=== PATIENT | male | born 1990 | race American Indian/Alaskan Native ===

== ENCOUNTER 2018-06-19 07:19 | Emergency (ER) | payer SELFPAY ==
[2018-06-19] MEDS ORDERED: TYLENOL PO ONE (07:33)
--- NOTE | 2018-06-19 08:17 | XRay Report ---
ROUTINE CHEST, TWO VIEWS: HISTORY: Chest pain, cough, fever. The trachea, heart, mediastinal contour, lung nicholas and bony thorax are unremarkable. IMPRESSION: Normal chest x-ray.
--- NOTE | 2018-06-19 10:04 | Emergency Department Report ---
ED Chest Pain HPI - General Chief Complaint: Chest Pain Stated Complaint: TROUBLE BREATHING, CHEST TIGHTNESS Time Seen by Provider: 06/19/18 09:38 Source: patient, family Mode of arrival: Ambulatory Limitations: No Limitations - History of Present Illness MD Complaint: chest pain -: Sudden Onset: during rest Pain Location: substernal Pain Radiation: none Severity: moderate Severity scale (0 -10): 3 Quality: heaviness, sharp Consistency: intermittent Improves With: rest Worsens With: inspiration Context: recent travel re: denies: nausea, vomting Other Symptoms: fever. denies: cough Treatments Prior to Arrival: none Aspirin use within the Past 7 Days: (0) No - Related Data On Oral Contraceptives: No Home Medications Medication Instructions Recorded Confirmed Last Taken No Known Home Medications [No 06/19/18 06/19/18 Unknown Reported Home Medications] Allergies Allergy/AdvReac Type Severity Reaction Status Date / Time hydrocodone AdvReac Vomiting Verified 06/19/18 13:38 morphine AdvReac Vomiting Verified 06/19/18 13:38 oxycodone AdvReac Vomiting Verified 06/19/18 13:38 Heart Score - HEART Score History: Slightly suspicious EKG: Non-specific Age: < 45 Risk factors: No known risk factors Troponin: < normal limit HEART Score: 1 - Critical Actions Critical Actions: 0-3 pts:0.9-1.7%risk of adverse cardiac event.Candidate for discharge ED Review of Systems ROS: Stated complaint: TROUBLE BREATHING, CHEST TIGHTNESS Other details as noted in HPI Comment: All other systems reviewed and negative Constitutional: fever. denies: chills Eyes: denies: eye pain, eye discharge ENT: denies: ear pain Respiratory: shortness of breath Cardiovascular: chest pain. denies: palpitations Endocrine: no symptoms reported Gastrointestinal: denies: abdominal pain, nausea, vomiting, diarrhea Genitourinary: denies: urgency, dysuria, frequency Musculoskeletal: denies: back pain, joint swelling Skin: denies: rash, lesions Neurological: denies: headache, weakness, numbness Psychiatric: denies: anxiety, depression Hematological/Lymphatic: denies: easy bleeding, easy bruising ED Past Medical Hx - Past Medical History Previous Medical History?: No - Surgical History Past Surgical History?: No - Social History Smoking Status: Never Smoker Substance Use Type: Alcohol - Medications Home Medications: Home Medications Medication Instructions Recorded Confirmed Last Taken Type No Known Home Medications [No 06/19/18 06/19/18 Unknown History Reported Home Medications] ED Physical Exam - General Limitations: No Limitations General appearance: alert, in no apparent distress - Head Head exam: Present: atraumatic, normocephalic, normal inspection - Eye Eye exam: Present: normal appearance, PERRL, EOMI Pupils: Present: normal accommodation - ENT ENT exam: Present: normal exam, normal orophraynx, mucous membranes moist - Neck Neck exam: Present: normal inspection, full ROM. Absent: tenderness - Respiratory Respiratory exam: Present: normal lung sounds bilaterally. Absent: respiratory distress, wheezes, rales, rhonchi, stridor - Cardiovascular Cardiovascular Exam: Present: regular rate, normal rhythm, normal heart sounds - GI/Abdominal GI/Abdominal exam: Present: soft, normal bowel sounds. Absent: distended, tenderness, guarding, rebound, rigid - Extremities Exam Extremities exam: Present: normal inspection, full ROM, normal capillary refill. Absent: tenderness - Back Exam Back exam: Present: normal inspection, full ROM. Absent: tenderness - Neurological Exam Neurological exam: Present: alert, oriented X3, CN II-XII intact - Psychiatric Psychiatric exam: Present: normal affect, normal mood - Skin Skin exam: Present: warm, dry, intact, normal color. Absent: rash ED Course Vital Signs 06/19/18 06/19/18 06/19/18 07:30 09:08 09:16 Temperature 100 F H 98.8 F Pulse Rate 100 H 83 Respiratory 18 10 L 18 Rate Blood Pressure 148/88 O2 Sat by Pulse 100 97 100 Oximetry 06/19/18 06/19/18 06/19/18 10:00 11:00 11:04 Temperature 98.2 F Pulse Rate 76 Respiratory 20 Rate Blood Pressure 116/74 116/74 O2 Sat by Pulse 96 97 Oximetry 06/19/18 06/19/18 06/19/18 12:00 13:00 13:14 Temperature 98.8 F Pulse Rate 89 Respiratory 14 Rate Blood Pressure 119/76 120/79 O2 Sat by Pulse 98 97 Oximetry 06/19/18 14:00 Temperature Pulse Rate Respiratory Rate Blood Pressure 112/70 O2 Sat by Pulse 96 Oximetry AMANDO score - Amando Score Age > 65: (0) No Aspirin use within the Past 7 Days: (0) No 3 or more CAD Risk Factors: (0) No 2 or more Angina events in past 24 hrs: (0) No Known CAD with more than 50% Stenosis: (0) No Elevated Cardiac Markers: (0) No ST Deviation Greater than 0.5mm: (0) No AMANDO Score: 0 ED Medical Decision Making - Lab Data Result diagrams: 06/19/18 07:48 06/19/18 07:48 - EKG Data -: EKG Interpreted by Me EKG shows normal: sinus rhythm Rate: normal (98) - EKG Data When compared to previous EKG there are: previous EKG unavailable Interpretation: nonspecific ST-T wave zachary, other (No STEMI.) - Radiology Data Radiology results: report reviewed, image reviewed - Medical Decision Making Chest Pain. Critical care attestation.: If time is entered above; I have spent that time in minutes in the direct care of this critically ill patient, excluding procedure time. ED Disposition Clinical Impression: Transaminitis Chest pain Qualifiers: Chest pain type: unspecified Qualified Code(s): R07.9 - Chest pain, unspecified Disposition: DC-01 TO HOME OR SELFCARE Is pt being admited?: No Does the pt Need Aspirin: Yes Condition: Stable Instructions: Chest Pain (ED) Additional Instructions: Please follow up the [facility] Dr Parrish in his out patient clinic. Return to the ED if your condition worsens. Referrals: PRIMARY MD LUIS [Primary Care Provider] - 3-5 Days STELLA PARRISH MD [Staff Physician] - 3-5 Days Forms: Work/School Release Form(ED) Time of Disposition: 16:57
[2018-06-19 10:12] LABS: Basophils # (Auto) 0.1 K/mm3 (0.0-0.1); Basophils % (Auto) 0.9 % (0.0-1.8); Eosinophils # (Auto) 0.1 K/mm3 (0.0-0.4); Eosinophils % (Auto) 1.1 % (0.0-4.3); Hematocrit 38.1 % (35.5-45.6); Hemoglobin 13.5 gm/dl (11.8-15.2); Lymphocytes # (Auto) 3.2 K/mm3 (1.2-5.4); Mean Corpuscular HGB Conc 35 % (32-34); Mean Corpuscular Hemoglobin 33 pg (28-32); Mean Corpuscular Volume 93 fl (84-94); Monocytes # (Auto) 0.7 K/mm3 (0.0-0.8); Monocytes % (Auto) 9.5 % (0.0-7.3); Platelet Count 190 K/mm3 (140-440); Red Blood Count 4.11 M/mm3 (3.65-5.03); Red Cell Distribution Width 13.2 % (13.2-15.2)
[2018-06-19 10:30] LABS: BUN/Creatinine Ratio 13; Blood Urea Nitrogen 12 mg/dL (9-20); Calcium 9.2 mg/dL (8.4-10.2); Hemolysis Index 13
[2018-06-19 10:44] LABS: INR 0.93 (0.87-1.13)
[2018-06-19 10:45] LABS: Partial Thromboplastin Time 24.8 Sec. (24.2-36.6)
[2018-06-19 11:00] LABS: Albumin 4.3 g/dL (3.9-5); Bilirubin,Direct 0.2 mg/dL (0-0.2)
[2018-06-19 11:31] LABS: Bilirubin,Urine NEG (Negative); Blood,Urine NEG (Negative); Color,Urine Yellow (Yellow); Protein,Urine <15 mg/dL mg/dL (Negative); Urobilinogen,Urine < 2.0 mg/dL (<2.0)
--- NOTE | 2018-06-19 12:44 | Cat Scan Report ---
CTA CHEST: HISTORY: chest pain. COMPARISON: none. TECHNIQUE: Helical CT in 1.25mm intervals following IV contrast. Pulmonary embolus protocol. Sagittal and coronal reformatted images. Rotational MIP images. FINDINGS: Contrast bolus is satisfactory. No pulmonary embolus is identified. Thyroid gland: Normal. Tracheobronchial tree: Normal. Esophagus: Normal. Heart: Normal. Pericardium: Normal. Mediastinum: Normal. Lung Morris: normal. Pleural Spaces: Normal. Musculoskeletal: Normal. IMPRESSION: No evidence for pulmonary embolus. Unremarkable CT chest with contrast.
[2018-06-19 14:55] VITALS: BP 112/70
--- NOTE | 2018-06-19 16:12 | Ultrasound Report ---
FINAL REPORT EXAM: US ABDOMEN LIMITED HISTORY: Elevated liver enzymes. TECHNIQUE: Directed sonography of the upper abdomen. PRIORS: None. FINDINGS: Gallbladder demonstrates some internal echogenic, but not definitely shadowing foci. Wall thickness within normal limits. Intra-and extrahepatic bile ducts are of normal caliber. The liver has mildly heterogeneous, increased echogenicity suggesting fatty infiltration, with possible focal sparing in left lobe. Right kidney measures 9.8 cm in longest dimension and left kidney measures 10.2 cm in longest dimension. No significant hydronephrosis. Spleen enlarged measuring approximately 15.4 cm in maximal dimension, without other focal abnormality. Visualized pancreatic parenchyma grossly unremarkable. Visualized abdominal aorta and IVC grossly unremarkable. IMPRESSION: 1. Findings which may represent cholestasis and sludge versus non shadowing cholelithiasis. Followup may be warranted. 2. Findings which may represent fatty infiltration in the liver versus nonspecific hepatocellular disease. Correlate clinically. 3. Splenomegaly.
== END 2018-06-19 17:01 | disposition home or self-care (01) ==
LOC: ED 07:19
DX: R07.89 Other chest pain (principal); R74.0 Nonspecific elevation of levels of transaminase and lactic acid dehydrogenase [LDH]; Z88.6 Allergy status to analgesic agent; Z88.5 Allergy status to narcotic agent
CPT/HCPCS: 36415; 71046; 71275; 76705; 80048; 80074; 81001; 82550; 83880; 84484; 85025; 85379; 85610; 85730; 87040; 93005; 93010; 99285; Q9967